=== PATIENT | male | born 1975 | race Caucasian/White ===

== ENCOUNTER 2024-07-13 13:24 | Outpatient (OUT) | payer SELFPAY ==
[2024-07-13 15:33] LABS: Albumin Level 4.1 g/dL (3.4-5.0); Phosphorus 3.7 mg/dL (2.6-4.7)
[2024-07-14 08:12] LABS: Vitamin B12 486 pg/mL (232-1245)
[2024-07-14 11:08] LABS: Lyme Total Antibody CIA Negative (Negative)
[2024-07-17 16:10] LABS: Copper Level 61 ug/dL (69-132)
== END 2024-07-13 13:25 | disposition home or self-care (01) ==
PROVIDERS: PCP Internal Medicine; Visit Provider Psychiatry & Neurology Neurology
DX: R29.898 Other symptoms and signs involving the musculoskeletal system (principal); G24.8 Other dystonia; R20.2 Paresthesia of skin
CPT/HCPCS: 36415; 82042; 82525; 82607; 82746; 83735; 84100; 86618